=== PATIENT | female | born 1955 | race Caucasian/White ===

== ENCOUNTER → 2016-11-03 | Outpatient (CLI) | payer BC ==
--- NOTE | 2016-11-03 20:24 | Diagnostic Imaging Report ---
EXAMINATION: Two views of the cervical spine. INDICATION: Neck pain. FINDINGS: There is reversal of the lordotic curvature in the cervical spine. The alignment of the posterior spinal line, however, is satisfactory. There are preserved vertebral body heights. Disc heights demonstrate moderate loss at C4/5, C5/6 and C6/7 levels. There are mild posterior osteophytes also along the mid to lower cervical spine levels. Mild anterior osteophytes at these levels is seen. The alignment of the lateral masses of C1 and C2 appear satisfactory. IMPRESSION: Prominent degenerative disc changes at C4/5 through C6/7 levels. Dictated by: Dictated on workstation # [id number]
== END ==
LOC: RAD 11:03
PROVIDERS: ATTEND Family Medicine
DX: M50.321 Other cervical disc degeneration at C4-C5 level (principal)
CPT/HCPCS: 72040

== ENCOUNTER → 2016-11-23 | Outpatient (CLI) | payer BC | LOC: RAD 10:31 | PROVIDERS: ATTEND Family Medicine | DX: Z12.31 Encounter for screening mammogram for malignant neoplasm of breast (principal) | CPT/HCPCS: 77067 ==

== ENCOUNTER → 2018-05-30 | Outpatient (CLI) | payer BC ==
--- NOTE | 2018-05-31 12:12 | Diagnostic Imaging Report ---
EXAMINATION: Digital mammogram bilateral screening with 3D tomosynthesis and computer-aided detection (CAD) system. INDICATION: Screening. COMPARISON: This study was compared to the prior exam of 11/23/2016 and 10/28/2015. At this time, there are no current complaints. FINDINGS: There are bilateral breast implants in place. The implants appear stable when compared to the prior study. There is no sign of an extracapsular rupture. The fibroglandular tissue overlying the implants is heterogeneously dense. This does limit the sensitivity of this exam. On the craniocaudad view of the right breast, there is a well-circumscribed 5 mm nodular density in the lateral retroareolar region. On the pinch view of this area, this density seems to be in the retroareolar region. This finding cannot be visualized on the MLO view. This density may be secondary to superimposition of the fibroglandular tissue or to a prominent duct. It would be possible, however, that this is a small discrete solid or cystic mass. I would recommend that ultrasound be performed for further study. The overall appearance of the breasts is otherwise no different. IMPRESSION: 1. Ultrasound would be recommended for further evaluation of the benign-appearing nodular density in the retroareolar region of the right breast. 2. The implants appear stable. There is no sign of an extracapsular rupture. ACR BI-RADS Category 0: Incomplete. (Needs additional imaging evaluation). Result letter will be mailed to the patient. Note: At least 10% of breast cancer is not imaged by mammography. Dictated by: Dictated on workstation # [id number]
== END ==
LOC: RAD 09:24
PROVIDERS: ATTEND Nurse Practitioner Family
DX: Z12.31 Encounter for screening mammogram for malignant neoplasm of breast (principal)
CPT/HCPCS: 77067

== ENCOUNTER → 2018-06-06 | Outpatient (CLI) | payer BC ==
--- NOTE | 2018-06-06 18:55 | Diagnostic Imaging Report ---
INDICATION: Right breast density. Correlation is made with recent screening mammogram from 05/30/2018. FINDINGS: Sonographic interrogation of the retroareolar right breast was performed. There is some ductal ectasia present. There is also a tiny circumscribed hypoechoic nodule at the 9 o'clock retroareolar region measuring approximately 4 mm in size. This may account for the mammographic density. No suspicious abnormality is seen. IMPRESSION: Benign-appearing tiny rounded circumscribed nodule in the retroareolar 9 o'clock portion of the right breast, likely accounting for the mammographic density. This has benign features. Patient may return to routine annual screening mammography. ACR BI-RADS Category 2: Benign findings. Dictated by: Dictated on workstation # [id number]
== END ==
LOC: RAD 13:13
PROVIDERS: ATTEND Nurse Practitioner Family
DX: R92.2 Inconclusive mammogram (principal)

== ENCOUNTER → 2019-08-07 | Outpatient (CLI) | payer BC ==
--- NOTE | 2019-08-07 09:57 | Diagnostic Imaging Report ---
INDICATION: Postmenopausal state, screening for osteopenia. COMPARISON: None available, baseline exam. FINDINGS: AP Spine L1-L4: [BMD (g/cm2): 1.104] [T-Score: -0.8] [Z-Score: 0.5] [BMD Previous: NA] [BMD % Change: NA] LT Hip Neck: [BMD (g/cm2): 0.789] [T-Score: -1.8] [Z-Score: -0.5] LT Hip Total: [BMD (g/cm2):0.861] [T-Score:-1.2] [Z-Score: -0.2] [BMD Previous: NA] [BMD % Change: NA] RT Hip Neck: [BMD (g/cm2):0.701] [T-Score:-2.4] [Z-Score:-1.2] RT Hip Total: [BMD (g/cm2):0.826] [T-score:-1.4] [Z-Score:-0.5] [BMD Previous:NA] [BMD % Change:NA] *Indicates significant change from prior examination based on 95% confidence level. World Health Organization criteria for BMD interpretation classify patients as Normal (T-score at or above -1.0), Osteopenic (T-score between -1.0 and -2.5) or Osteoporotic (T-score at or below -2.5). LIMITATIONS AND MODIFICATION: None. FRACTURE RISK (FRAX SCORE): The ten year probability of (%): Major Osteoporotic Fracture: [12.4] Hip Fracture: [2.4] IMPRESSION: 1. Osteopenia (Low bone mass). 2. Baseline examination. 3. See below National Osteoporosis Foundation guidelines on when to potentially initiate pharmacologic therapy. Based on the National Osteoporosis Foundation Guidelines, pharmacologic treatment should be initiated in any of the following, unless clinical conditions suggest otherwise: * Any patient with prior fragility fracture of the hip or vertebrae. A spine fracture indicates 5X risk for subsequent spine fracture and 2X risk for subsequent hip fracture. * Osteoporosis (T-score <-2.5). * Postmenopausal women and men age 50 and older with low bone mass/osteopenia (T-score between -1.0 and -2.5) by DXA and 10-year major osteoporotic fracture greater than 20% or a 10-year probability of hip fracture greater than 3%. These fracture risks are supplied above in the FRAX score, if applicable. * Clinician judgement and/or patient preferences may indicate treatment for people with 10-year fracture probabilities above or below these levels. Dictated by: Dictated on workstation # [id number]
--- NOTE | 2019-08-07 12:51 | Diagnostic Imaging Report ---
INDICATION: Routine screening. COMPARISON: 05/30/2018 and 10/28/2015. TECHNIQUE: 2D and 3D bilateral screening mammography was performed with CAD. FINDINGS: Bilateral breast implants are again noted. The implant contours appear to be stable. Both breasts are heterogeneously dense, limiting the sensitivity of mammography. There are benign calcifications bilaterally. No spiculated mass or malignant appearing microcalcifications are seen. The axillae are unremarkable. IMPRESSION: No mammographic features suspicious for malignancy are identified. ACR BI-RADS Category 2: Benign findings. Result letter will be mailed to the patient. Note: At least 10% of breast cancer is not imaged by mammography. Dictated by: Dictated on workstation # [id number]
== END ==
LOC: RAD 08:32
PROVIDERS: ATTEND Nurse Practitioner Family
DX: Z12.31 Encounter for screening mammogram for malignant neoplasm of breast (principal); M85.80 Other specified disorders of bone density and structure, unspecified site; Z78.0 Asymptomatic menopausal state
CPT/HCPCS: 77063; 77067; 77080

== ENCOUNTER → 2021-03-23 | Outpatient (CLI) | payer BC ==
--- NOTE | 2021-03-23 16:46 | Diagnostic Imaging Report ---
PROCEDURE: US Non-OB pelvis comp/trans. TECHNIQUE: Multiple real-time grayscale images were obtained of the pelvis in various projections endovaginally. Transabdominal imaging was also performed. INDICATION: Acute pelvic pain. COMPARISON: None available. FINDINGS: The uterus measures 6.4 x 4.4 x 5.2 cm. There is no myometrial mass. The endometrial canal is distended with some anechoic fluid at the level of fundus. At the level of the uterine body, there is abnormal thickening of the endometrium which measures up to 1.3 cm in thickness. Hyperechoic endometrial thickening also encases portions of the endometrial canal fluid. The right ovary is normal in appearance measuring 1.1 x 0.6 x 1.1 cm. The left ovary is not visualized. Left adnexa are imaged without concerning abnormality. No free pelvic fluid. IMPRESSION: 1. Abnormal mixed solid and cystic appearance of the endometrium, which may represent trapped fluid. The thickened echogenic endometrium raises possibility of endometrial neoplasm. If not already performed, gynecology consultation is recommended as endometrial biopsy may be warranted. Dictated by: Dictated on workstation # [id number]
== END ==
LOC: RAD 11:00
PROVIDERS: ATTEND Obstetrics & Gynecology
DX: R93.89 Abnormal findings on diagnostic imaging of other specified body structures (principal); R10.2 Pelvic and perineal pain
CPT/HCPCS: 76830; 76856

== ENCOUNTER → 2021-04-08 | Outpatient (CLI) | payer BC ==
--- NOTE | 2021-04-09 11:05 | Diagnostic Imaging Report ---
Digital mammogram bilateral screening This study was compared to the prior exams of 08/07/2019, 05/30/2018 and 11/23/2016. At this time, there are no current complaints. As noted on the previous exam, there are bilateral breast implants in place. The implants seem stable when compared to the prior exam. There is no sign of an extracapsular rupture of either implant. The fibroglandular tissue overlying the implants is heterogeneously dense. This does limit the sensitivity of this exam. Overall, there does not appear to have been any significant change when compared to the prior exam. There is no primary or secondary sign of malignancy noted. IMPRESSION: 1. There is no evidence of malignancy. 2. There are bilateral implants in place and the implants seem stable. There is no sign of an extracapsular rupture of either implant. ACR BI-RADS Category 1: Negative. Result letter will be mailed to the patient. Note: At least 10% of breast cancer is not imaged by mammography. Dictated by: Dictated on workstation # [id number]
== END ==
LOC: RAD 10:45
PROVIDERS: ATTEND Obstetrics & Gynecology
DX: Z12.31 Encounter for screening mammogram for malignant neoplasm of breast (principal); Z98.82 Breast implant status
CPT/HCPCS: 77063; 77067

== ENCOUNTER 2021-04-20 05:32 | Outpatient (CLI) | payer BC ==
[~2021-04-20] VITALS: Ht 162.6 cm; Wt 77.7 kg
[2021-04-20] MEDS ORDERED: ATOR10TA66 PO (12:57)
[2021-04-20] MEDS ORDERED: RIZA10TA37 PO (12:57)
[2021-04-20] MEDS ORDERED: CYCL10TA25 PO (12:57)
[2021-04-20] MEDS ORDERED: CALCIUM (13:18)
[2021-04-20] MEDS ORDERED: VITAMIN D (13:18)
[2021-04-20] MEDS ORDERED: FOLIC ACID (13:20)
[2021-04-20] MEDS ORDERED: ZINC (13:20)
[2021-04-20] MEDS ORDERED: POTASSIUM (13:20)
[2021-04-20] MEDS ORDERED: MAGNESIUM (13:20)
== END 2021-04-20 13:40 | disposition home or self-care (01) ==
LOC: PREOP 05:32
PROVIDERS: ATTEND Obstetrics & Gynecology
DX: Z01.818 Encounter for other preprocedural examination (principal)

== ENCOUNTER 2021-04-27 07:15 | Day surgery (SDC) | payer BC ==
[~2021-04-27] VITALS: Ht 162.6 cm; Wt 77.7 kg
[2021-04-27] VITALS (9 sets, daily range): BP systolic 99–144; BP diastolic 67–92
[~2021-04-27 07:15] MED LIST: ATOR10TA66 PO; CALCIUM; CYCL10TA25 PO; FOLIC ACID; MAGNESIUM; POTASSIUM; RIZA10TA37 PO; VITAMIN D; ZINC
[2021-04-27] MEDS ORDERED: LACTATED RINGERS 1,000 ML IV PRN (07:30)
[2021-04-27 07:58] LABS: BASOPHILS % (AUTO) 0 % (0-10); EOSINOPHILS # (AUTO) 0.2 10^3/uL (0.0-0.3); EOSINOPHILS % (AUTO) 3 % (0-10); HEMATOCRIT 41 % (35-52); HEMOGLOBIN 13.9 g/dL (11.5-16.0); LYMPHOCYTES # (AUTO) 2.9 10^3/uL (1.0-4.0); LYMPHOCYTES % (AUTO) 34 % (12-44); MEAN CORPUSCULAR HEMOGLOBIN 30 pg (25-34); MEAN CORPUSCULAR HGB CONC 34 g/dL (32-36); MEAN CORPUSCULAR VOLUME 90 fL (80-99); MEAN PLATELET VOLUME 10.2 fL (9.0-12.2); MONOCYTES # (AUTO) 0.5 10^3/uL (0.0-1.0); MONOCYTES % (AUTO) 6 % (0-12); NEUTROPHILS % (AUTO) 57 % (42-75); PLATELET COUNT 301 10^3/uL (130-400); WHITE BLOOD COUNT 8.7 10^3/uL (4.3-11.0)
[2021-04-27] MEDS ORDERED: ONDANSETRON 4 MG/2 ML (SDV) Z0FRAN ONE (08:08)
[2021-04-27] MEDS ORDERED: MIDAZOLAM 2 MG/2 ML (VERSED) VIAL ONE (08:08)
[2021-04-27] MEDS ORDERED: fentaNYL INJ 100 MCG/2 ML AMP ONE (08:08)
[2021-04-27] MEDS ORDERED: LIDOCAINE PF 2% 5 ML (XYLOCAINE) VIAL ONE (08:08)
[2021-04-27] MEDS ORDERED: proPOfol 200 MG/20 ML (DIPRIVAN) VIAL IV ONE (08:08)
[2021-04-27] MEDS ORDERED: BUPIVACAINE 0.25% 30 ML (SENSORCAINE) VIAL ONE (08:11)
[2021-04-27] MEDS ORDERED: PHENYLEPHRINE 100 MCG/ML 10 ML (ANESTHESIA) SYR ONE (09:47)
[2021-04-27] MEDS ORDERED: SEVOFLURANE (ULTANE) 15 ML INHAL SOLN ONE (10:27)
[2021-04-27] MEDS ORDERED: KETOROLAC 30 MG/ML VIAL IVP ONE (10:30)
[2021-04-27] MEDS ORDERED: D5 LR IV SOLUTION 1,000 ML IV SCH (10:30)
[2021-04-27] MEDS ORDERED: HYDROcodone/APAP 5 MG/325 MG (LORTAB) TAB PO PRN (10:30)
[2021-04-27] MEDS ORDERED: ONDANSETRON 4 MG/2 ML (SDV) Z0FRAN IVP PRN ×2 (10:30→10:45)
--- NOTE | 2021-04-27 10:33 | Discharge Inst-Women's Service ---
Discharge Inst-Women's Serv Depart Medication/Instructions New, Converted or Re-Newed RX: Other (take otc nsaid as needed) Problems Reviewed?: Yes Consults/Follow Up Additional Follow Up: Yes Activity Activity: Activity as Tolerated Driving Instructions: No Driving for 1 Week NO SMOKING: NO SMOKING Nothing Inside Vagina: No Douching, No [place], No Tampons Diet Discharge Diet: No Restrictions Symptoms to Report to : Bleeding Excessive, Pain Increased, Fever Over 101 Degrees F, Vaginal Bleeding Increase, Questions/Concerns For Any Problems or Questions: Contact Your Physician ELADIO KRUEGER DO Apr 27, 2021 10:32
--- NOTE | 2021-04-27 10:43 | Anesthesia-General Post-Op ---
General Patient Condition Mental Status/LOC: Same as Preop Cardiovascular: Satisfactory Nausea/Vomiting: Absent Respiratory: Satisfactory Pain: Controlled Complications: Absent Post Op Complications Complications None Follow Up Care/Instructions Patient Instructions None needed. Anesthesia/Patient Condition Patient Condition Patient is doing well, no complaints, stable vital signs, no apparent adverse anesthesia problems. No complications reported per nursing. JUSTO DIA CRNA Apr 27, 2021 10:43
[2021-04-27] MEDS ORDERED: morphine INJ 10 MG/ML 1ML (SYR OR VIAL) IVP ONE (10:45)
[2021-04-27] MEDS ORDERED: fentaNYL INJ 100 MCG/2 ML AMP IVP ONE (10:45)
--- NOTE | 2021-04-27 18:19 | OPERATIVE REPORT ---
DATE OF SERVICE: 04/27/2021 PREOPERATIVE DIAGNOSES: 1. A 65-year-old female with thickened endometrium, on ultrasound. 2. Postmenopausal bleeding. POSTOPERATIVE DIAGNOSES: 1. A 65-year-old female with thickened endometrium, on ultrasound. 2. Postmenopausal bleeding. PROCEDURE: D and C with hysteroscopic resection of endometrial polyp. SPECIMEN SENT: Endometrial curettings. SURGEON: Eladio Krueger DO. ANESTHESIA: LMA general. ESTIMATED BLOOD LOSS: Minimal. URINE OUTPUT: 50 mL drained at the start of the procedure FLUIDS: 800 mL lactated Ringer's solution. FINDINGS: A large polypoid structure within the endometrial cavity, otherwise grossly normal-appearing endometrial surface. SPECIMEN SENT: Endometrial curettings. INDICATIONS FOR PROCEDURE: This 65-year-old female is a patient, who had sought care in my office as a consultation from Dr. Mckeon for postmenopausal bleeding and thickened endometrium on ultrasound. I discussed with the patient hysteroscopic guidance and biopsy of this area due to its concerning features and cystic appearance. Risks of the procedure were discussed with the patient in detail including risk of bleeding, infection, damage to surrounding structures including, but not limited to bowel, bladder, ureter, kidneys, possible need for reoperation, damage to the uterus, possible need for hysterectomy and even . After everything was discussed with the patient in detail, consent was obtained in the preoperative area and the patient was taken to the operating room. OPERATIVE REPORT IN DETAIL: Once in the operating room, anesthesia was found to be adequate. She was placed in the dorsal lithotomy position, prepped and draped in the normal sterile fashion. Timeout was performed. The bladder was first drained using straight catheterization. Weighted speculum was inserted to the patient's vagina. Right angle retractor was used to visualize the cervix, which was grasped at 12 o'clock position using a single tooth tenaculum. I then gently sounded the uterine cavity, depth was found to be 8 cm. I then gently dilated the cervix using Hanks dilators to allow placement of the hysteroscope. Using normal saline as my visual medium, I advanced the hysteroscope into the uterus, distending the endometrium using normal saline. I am able to visualize this large polypoid structure occupying almost the entirety of the endometrial cavity, but it seems to attach to the upper portion and the fundal pressure of the endometrium. Using a hysteroscopic resection tool, I directly resect the entirety of the polyp collecting the tissue and a pathology specimen bag as it comes out. This takes a significant amount of time, approximately 15 to 20 minutes to resect the entire polyp itself and after which, the sinclair of the uterine cavity appeared uniform. Bilateral tubal ostia were appreciated and there was no active bleeding noted, so I removed the hysteroscope at that point and there was minimal to a small amount of bleeding noted from the cervix. Therefore, I removed the single tooth tenaculum. There was no bleeding from the puncture site. All other instruments were removed from the patient's vagina. The patient tolerated the procedure well and sent to recovery room in stable condition. Lap and sponge counts were correct at the end of the procedure. Instrument counts correct as well. Job ID: [id number] DocumentID: [id number] Dictated Date: 04/27/2021 11:39:35 Chief Lock Operator Date: 04/27/2021 18:17:45 Dictated By: ELADIO KRUEGER DO
== END 2021-04-27 12:20 | disposition home or self-care (01) ==
LOC: SDC 07:15
PROVIDERS: ATTEND Obstetrics & Gynecology
DX: N84.0 Polyp of corpus uteri (principal); N95.0 Postmenopausal bleeding; R93.89 Abnormal findings on diagnostic imaging of other specified body structures; F17.210 Nicotine dependence, cigarettes, uncomplicated
CPT/HCPCS: 36415; 85025; 86850; 86900; 86901; 87081

== ENCOUNTER → 2021-07-28 | Outpatient (CLI) | payer BC ==
--- NOTE | 2021-07-28 13:40 | Diagnostic Imaging Report ---
INDICATION: Pain and tingling to the right foot. TIME OF EXAM: 12:53 PM. TECHNIQUE: Three views of the right foot were obtained. FINDINGS: There is hardware transfixing the medial and lateral malleoli. The metatarsals are intact. The phalanges are intact. No fractures are seen. The midfoot and hindfoot are unremarkable. IMPRESSION: No acute abnormality is detected. Dictated by: Dictated on workstation # [id number]
--- NOTE | 2021-07-28 13:51 | Diagnostic Imaging Report ---
INDICATION: Pain and tingling to the right ankle. TIME OF EXAM: 12:51 PM. TECHNIQUE: Three views of the right ankle were obtained. FINDINGS: There is a lateral plate and numerous screws transfixing the distal fibula. A partially threaded screw transfixes the medial malleolus. The ankle mortise is well maintained. The talar dome is smooth. No fracture or dislocation is seen. The hardware is intact. IMPRESSION: Postop changes. No acute abnormality is detected. Dictated by: Dictated on workstation # [id number]
== END ==
LOC: RAD 12:22
PROVIDERS: ATTEND Nurse Practitioner Family
DX: M79.671 Pain in right foot (principal); R20.2 Paresthesia of skin; M85.80 Other specified disorders of bone density and structure, unspecified site
CPT/HCPCS: 73610; 73630

== ENCOUNTER → 2021-08-11 | Outpatient (CLI) | payer BC ==
--- NOTE | 2021-08-11 16:12 | Diagnostic Imaging Report ---
INDICATION: 65-year-old asymptomatic postmenopausal female. COMPARISON: 08/07/2019 FINDINGS: AP Spine L1-L4: [BMD (g/cm2): 1.184] [T-Score: -0.1] [Z-Score: 1.0] [BMD Previous: 1.104] [BMD % Change: 7.2] LT Hip Neck: [BMD (g/cm2): 0.731] [T-Score: -2.2] [Z-Score: -1.0] LT Hip Total: [BMD (g/cm2):0.843] [T-Score:-1.3] [Z-Score: -0.4] [BMD Previous: 0.861] [BMD % Change: -2.1] RT Hip Neck: [BMD (g/cm2):0.689] [T-Score:-2.5] [Z-Score:-1.3] RT Hip Total: [BMD (g/cm2):0.812] [T-score:-1.6] [Z-Score:-0.7] [BMD Previous:0.826] [BMD % Change:-1.7] *Indicates significant change from prior examination based on 95% confidence level. World Health Organization criteria for BMD interpretation classify patients as Normal (T-score at or above -1.0), Osteopenic (T-score between -1.0 and -2.5) or Osteoporotic (T-score at or below -2.5). LIMITATIONS AND MODIFICATION: None. FRACTURE RISK (FRAX SCORE): Not applicable as patient meets criteria for osteoporosis. IMPRESSION: 1. Osteoporosis. 2. No significant change in bone mineral density since prior examination. 3. See below National Osteoporosis Foundation guidelines on when to potentially initiate pharmacologic therapy. Based on the National Osteoporosis Foundation Guidelines, pharmacologic treatment should be initiated in any of the following, unless clinical conditions suggest otherwise: * Any patient with prior fragility fracture of the hip or vertebrae. A spine fracture indicates 5X risk for subsequent spine fracture and 2X risk for subsequent hip fracture. * Osteoporosis (T-score <-2.5). * Postmenopausal women and men age 50 and older with low bone mass/osteopenia (T-score between -1.0 and -2.5) by DXA and 10-year major osteoporotic fracture greater than 20% or a 10-year probability of hip fracture greater than 3%. These fracture risks are supplied above in the FRAX score, if applicable. * Clinician judgement and/or patient preferences may indicate treatment for people with 10-year fracture probabilities above or below these levels. Dictated by: Dictated on workstation # [id number]
== END ==
LOC: RAD 09:55
PROVIDERS: ATTEND Nurse Practitioner Family
DX: M85.89 Other specified disorders of bone density and structure, multiple sites (principal); Z78.0 Asymptomatic menopausal state
CPT/HCPCS: 77080

== ENCOUNTER → 2022-07-22 | Outpatient (CLI) | payer BC ==
--- NOTE | 2022-07-23 10:23 | Diagnostic Imaging Report ---
Indication: Routine screening. Comparison is made with prior mammograms from 04/08/2021 and 08/07/2019. 2-D and 3-D bilateral screening mammography was performed with CAD. Bilateral breast implants are again noted. Implant contours are stable without evidence of extracapsular rupture. Both breasts are heterogeneously dense, limiting the sensitivity of mammography. The overall parenchymal pattern appears stable. No dominant mass or malignant-appearing microcalcifications are seen. There are benign calcifications bilaterally. The axillae are unremarkable. IMPRESSION: BI-RADS Category 2 No mammographic features suspicious for malignancy are identified. ACR BI-RADS Category 2: Benign findings. Result letter will be mailed to the patient. Note: At least 10% of breast cancer is not imaged by mammography. Dictated by: Dictated on workstation # [id number]
== END ==
LOC: RAD 14:29
PROVIDERS: ATTEND Obstetrics & Gynecology
DX: Z12.31 Encounter for screening mammogram for malignant neoplasm of breast (principal)
CPT/HCPCS: 77063; 77067